=== PATIENT | male | born 1950 | race Caucasian/White ===

== ENCOUNTER 2018-04-03 06:54 | Inpatient (IN) ==
--- NOTE | 2018-03-08 09:48 | PAT Medication Instructions ---
Medication Instructions Date of Service March 08, 2018 Home Medications aspirin [Aspir-81] 81 mg PO HS atorvastatin [Lipitor] 10 mg PO PM ezetimibe [Zetia] 10 mg PO QAM hydrochlorothiazide 25 mg PO QAM losartan 100 mg PO QAM montelukast 10 mg PO PM multivitamin 1 tab PO QAM naproxen sodium 220 mg PO HS NEEDED ranitidine HCl 150 mg PO HS NEEDED tadalafil [Cialis] 5 mg PO QAM terazosin 1 mg PO HS Saline Nasal 1 dose INTRANASAL DAILY fluticasone furoate [Flonase 2 spray INTRANASAL QAM ASK your surgeon for instructions naproxen sodium 220 mg PO HS NEEDED ASK your prescriber and surgeon aspirin [Aspir-81] 81 mg PO HS DO NOT take the morning of surgery multivitamin 1 tab PO QAM hydrochlorothiazide 25 mg PO QAM losartan 100 mg PO QAM Saline Nasal 1 dose INTRANASAL DAILY fluticasone furoate [Flonase 2 spray INTRANASAL QAM Take morning of surgery With a small sip of water, OTHERWISE NOTHING TO EAT OR DRINK AFTER MIDNIGHT: tadalafil [Cialis] 5 mg PO QAM ezetimibe [Zetia] 10 mg PO QAM Take evening before surgery terazosin 1 mg PO HS ranitidine HCl 150 mg PO HS NEEDED montelukast 10 mg PO PM atorvastatin [Lipitor] 10 mg PO PM Other Notes If you have any questions please call us at [phone] or [phone] or [phone] or [phone]
--- NOTE | 2018-03-08 12:08 | Anesthesiology Consultation ---
Date of Service March 08, 2018 Assessment & Plan (1) Encounter for pre-operative examination: Chart Review Chart Review: Acceptable Risk for Surgery and Patient seen in Pre Admission Testing Consults Requested none Patient was seen by Dr. Guevara (carpenter railcar) on 01/09/18. At that visit, it was noted "based on his recent stress test he will be cleared. He will be considered low cardiac risk." Teaching & Discussion Pre-Anesthesia Teaching/Discussion Notes: Instructed NPO after midnight before surgery, except medications with 15 cc of water. Medication instructions provided according to the PAT guidelines. History Surgery Operation Date: 04/03/18 07:00 Proposed Procedures p Right Total Knee Arthroplasty - Mik Alba MD Height/Weight Height: 6 ft 1 in Weight: 141.1 kg Allergies Allergy/AdvReac Type Severity Reaction Status Date / Time peanut Allergy Severe swelling Verified 02/27/18 08:23 Medications Home Medications Medication Instructions Recorded Confirmed Last Taken aspirin [Aspir-81] 81 mg PO HS 02/27/18 02/27/18 Unknown atorvastatin [Lipitor] 10 mg PO PM 02/27/18 02/27/18 Unknown ezetimibe [Zetia] 10 mg PO QAM 02/27/18 02/27/18 Unknown hydrochlorothiazide 25 mg PO QAM 02/27/18 02/27/18 Unknown losartan 100 mg PO QAM 02/27/18 02/27/18 Unknown montelukast 10 mg PO PM 02/27/18 02/27/18 Unknown multivitamin [Multiple Vitamins] 1 tab PO QAM 02/27/18 02/27/18 Unknown naproxen sodium 220 mg PO HS PRN 02/27/18 02/27/18 Unknown ranitidine HCl 150 mg PO HS PRN 02/27/18 02/27/18 Unknown tadalafil [Cialis] 5 mg PO QAM 02/27/18 02/27/18 Unknown terazosin 1 mg PO HS 02/27/18 02/27/18 Unknown Saline Nasal 1 dose INTRANASAL DAILY 03/08/18 03/08/18 Unknown fluticasone furoate [Flonase 2 spray INTRANASAL QAM 03/08/18 03/08/18 Unknown Sensimist] Past Medical History Medical History BPH (benign prostatic hyperplasia) Cardiac murmur DISCOVERED 5 YEARS AGO, WAS SENT TO CARDIO AND HAD CARDIAC CATH, DIAGNOSITIC ONLY Degenerative disc disease PT FOLLOWS WITH UOC AND DENIES ANY CURRENT ISSUES WITH PHYSICAL THERAPY GERD (gastroesophageal reflux disease) NSAID INDUCED Hyperlipidemia Hypertension Osteoarthritis Pre-diabetes DIET CONTROLLED Sleep apnea USES CPAP/BIPAP HS Past Surgical History Surgical History History of adenoidectomy History of cardiac cath DIAGNOSTIC ONLY History of cholecystectomy History of myringotomy BILATERAL, CURRENT History of sinus surgery History of tonsillectomy History of tooth extraction History of total knee replacement LEFT Past Anesthesia History No Hx of Anesthesia Complications and No Family Hx of Anesthesia Complications History of PONV No Motion Sickness Screening History of Motion Sickness: No Social History Smoking Status: Never smoker Do You Dip or Chew Tobacco: No Hx Alcohol Use: Yes alcohol intake frequency: holidays/special occasions only Alcohol Intake Frequency Comment: RARE Hx Substance Use: Yes substance use type: does not use Exercise / Class Metabolic Activity II 4-5 Yardwork/Stairs/Walk up hill (Decreased due to knee pain. Able to climb FOS. Able to mow yard. Does PT 2x week. Denies CP or SOB. ) Review of Systems Patient denies chest pain, shortness of breath, dyspnea on exertion, reflux ( controlled with medication if it occurs - rare), cough, wheezing, palpitations. +joint pain (knee, hip) Physical Exam Vital Signs BP: 118/75 P: 74 R: 16 T: 97.4 SPO2: 96% on RA ENMT Thyromental Distance: > or= 3.5 Finger Breadths (3.5) Mallampati Class: III Neck normal visual inspection and trachea midline; neck extension not limited Respiratory normal respiratory effort Auscultation: lungs clear to auscultation bilaterally Cardiovascular Rate/Rhythm: regular rate and regular rhythm Heart Sounds: no murmur Vessels: no carotid bruit Neurologic moves all extremities Psychiatric Orientation: alert and oriented x 3 Testing Electrocardiogram Date: 01/09/18 Findings: + NSR @ (76) Low voltage in precordial leads. Chest X-Ray Date: 03/08/18 Findings: + NAD FINDINGS: Chronic bibasilar parenchymal fibrotic change. Mild stable cardia megaly. Mid and upper lungs are clear. IMPRESSION: Chronic change. No acute process. Echocardiogram Date: 10/26/16 EF: 60% Left ventricular size is normal with concentric LVH. Normal wall motion. Moderately enlarged left and right atrial size. Moderately enlarged right ventricular size with normal right ventricular function. Thickened mitral valve without mitral annular calcification. No evidence of mitral stenosis. Diastolic dysfunction noted by doppler (Grade I). Sclerotic aortic valve visualized. Normal tricuspid valve visualized. Visualized portion of the pulmonic valve is normal. Colorflow doppler reveals mild mitral, no aortic, mild to moderate tricuspid, and mild pulmonic insufficiencies. Right ventricular systolic pressure is 33 mmHg, consistent with mild hypertension. Stress Test Date: 10/26/16 Type: exercise Baseline EKG WNL and NSR. No chest pain. Normal hemodynamic response to exercise normal. Frequent PVCs. Exercise tolerance good. Achieved 87% of MPHR. Stress EKG negative for ischemia. PLAN: Continue same medications. Cardiac Catheterization Date: 11/08/12 Findings: + RCA (30-40% stenosis) Intervention: + none Normal chamber size. Normal wall motion. LVEF 55%. 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 Preserved LVEF. Normal LVEDP. Recommendations: Maximize medical therapy and risk factor modification. Laboratory Results 03/08/18 12:40 03/08/18 12:40 Blood Type A Positive 03/08/18 12:40 Antibody Screen NEGATIVE 03/08/18 12:40 PT 10.4 Seconds (9.0-12.0) 03/08/18 12:40 INR 1.0 (0.9-1.1) 03/08/18 12:40 APTT 26.3 Seconds (21.0-31.0) 03/08/18 12:40 Hemoglobin A1c 5.9 % (4.5-5.6) H 03/08/18 12:40 Urine Color Yellow 03/08/18 Unknown Urine Appearance Clear (Clear) 03/08/18 Unknown Urine pH 7.0 (4.5-7.5) 03/08/18 Unknown Ur Specific [place] 1.012 (1.000-1.030) 03/08/18 Unknown Urine Protein Negative (Negative) 03/08/18 Unknown Urine Glucose (UA) Negative (Negative) 03/08/18 Unknown Urine Ketones Negative (Negative) 03/08/18 Unknown Urine Nitrite Negative (Negative) 03/08/18 Unknown Ur Leukocyte Esterase Negative (Negative) 03/08/18 Unknown 03/08/18 Unknown Urine Culture - Preliminary Urine,Clean Catch No growth - Less than 1,000 colonies/mL, Final report to follow.
[2018-03-08 13:06] LABS: Basophils # (auto) 0.01 K/uL (0-0.2); Basophils % (auto) 0.2 %; Eosinophils # (auto) 0.13 K/uL (0-0.5); Eosinophils % (auto) 2.8 %; Hematocrit (blood only) 42.5 % (42-52); Hemoglobin 14.4 g/dL (14.0-18.0); Immature Granulocytes # (auto) 0.01 K/uL (0.00-0.02); Immature Granulocytes % (auto) 0.2 %; Lymphocytes # (auto) 1.64 K/uL (1.2-3.4); Lymphocytes % (auto) 35.1 %; Mean Corpuscular Hgb Conc 33.9 g/dL (32-36); Mean Corpuscular Volume 87.6 fL (80-100); Mean Platelet Volume 9.6 fL (7.4-10.4); Monocytes # (auto) 0.46 K/uL (0.11-0.59); Monocytes % (auto) 9.9 %; Neutrophils # (auto) 2.42 K/uL (1.4-6.5); Neutrophils % (auto) 51.8 %; Platelet Count 187 K/uL (130-400); RDW Coefficient of Variation 13.1 % (11.5-14.5); Red Blood Count 4.85 M/uL (4.7-6.1); White Blood Count 4.67 K/uL (4.8-10.8)
[2018-03-08 13:15] LABS: Appearance Urine Clear (Clear); Bilirubin Urine Negative (Negative); Color Urine Yellow; Glucose Urine UA Negative (Negative); Ketones Urine Negative (Negative); Leukocyte Esterase Urine Negative (Negative); Nitrite Urine Negative (Negative); Protein Urine Negative (Negative); Specific Gravity Urine 1.012 (1.000-1.030); Urobilinogen Urine Negative (Negative)
[2018-03-08 13:23] LABS: Partial Thromboplastin Time 26.3 Seconds (21.0-31.0); Prothrombin Time 10.4 Seconds (9.0-12.0)
--- NOTE | 2018-03-08 13:24 | XRay Report ---
XR chest Pre-admission PA/Lat CLINICAL HISTORY: pat preoperative evaluation COMPARISON STUDY: 10/04/2012 FINDINGS: Chronic bibasilar parenchymal fibrotic change. Mild stable cardia megaly. Mid and upper lizeth gs are clear. IMPRESSION: Chronic change. No acute process. The above report was generated using voice recognition software. It may contain grammatical, syntax or spelling errors. Electronically signed by: Jeff Jones M.D. 03/08/2018 1:22 PM
[2018-03-08 13:27] LABS: Albumin Level 4.2 gm/dl (3.4-5.0); BUN Creatinine Ratio 15.2 (10-20); Creatinine Clr Calc Pharmacy 100.9 ml/min; Est GFR (African American) 86.5; Est GFR (Non-African American) 74.6; Potassium 3.9 mmol/L (3.5-5.1)
[2018-03-08 13:42] LABS: Estimated Average Glucose 123 mg/dl
--- NOTE | 2018-03-31 12:15 | History and Physical Report ---
DATE OF ADMISSION: 04/03/2018 CHIEF COMPLAINT: Right knee pain. HISTORY OF PRESENT ILLNESS: The patient is a 68-year-old gentleman with known osteoarthritis about his right knee. He had a previous left total knee arthroplasty approximately 5 years ago. He has had previous corticosteroid injection in the right knee. Due to ongoing pain and disability, he now desires to proceed with right total knee arthroplasty. PAST MEDICAL HISTORY: Hypertension, hypercholesterolemia, sleep apnea with CPAP use, prediabetes, osteoarthritis, obesity. PAST SURGICAL HISTORY: Tonsillectomy, cholecystectomy, oral surgery, left knee replacement as above, nasal surgery, ear surgery. MEDICATIONS: Hydrochlorothiazide 25 mg daily, Singulair 10 mg daily, aspirin 81 mg daily, Lipitor 10 mg daily, terazosin 1 mg at bedtime, losartan 100 mg daily, Zetia 10 mg at bedtime, multivitamin daily, Flonase 2 sprays each nostril daily. ALLERGIES: ADHESIVES CAUSE A RASH, PEANUTS. SOCIAL HISTORY AND REVIEW OF SYSTEMS: Noncontributory. PHYSICAL EXAMINATION: GENERAL: Well-nourished, well-developed male who appears stated age. HEENT: Normocephalic, atraumatic. External movements intact, oropharynx pink and moist. NECK: Supple without adenopathy. LUNGS: Clear to auscultation bilaterally. HEART: Regular rate and rhythm. ABDOMEN: Soft, nontender, nondistended. EXTREMITIES: The upper extremities are within normal limits. The right knee is in neutral alignment. He complains primarily of medial compartment pain. He has range of motion from 0 to 125 degrees. X-RAYS: X-rays were reviewed. He has a neutral slightly varus aligned knee. He has bone on bone arthritis of medial compartment and medial joint line osteophytes. He has mild degenerative changes about the patellofemoral joint with osteophyte formation as well. ASSESSMENT: Right knee degenerative joint disease. PLAN: Risks versus benefits were discussed, consent was obtained. The patient's primary care physician is Dr. Salas from [facility]. His insurance checker is Dr. Guevara from [facility] cardiology in [place]. We will proceed with right total knee arthroplasty as indicated.
[~2018-04-03 06:54] MED LIST: ACETAMINOPHEN 500 MG TAB PO SCH; BUPIVACAINE 0.5 % 5 MG/1 ML PF 10ML VIAL ONE; CEFAZOLIN 3000MG 65 ML IV SCH; CeleBREX 200 MG CAP PO SCH; FAMOTIDINE 20 MG TAB PO SCH; GABAPENTIN 300 MG PO SCH; ROPIVACAINE 0.5% 5 MG/ML 30 ML VIAL ONE; ROPIVACAINE 0.5% HCL/PF 150 MG, BUPIVACAINE 0.5% MPF 30 ML, EPINEPHrine 30MG/30ML (OR U... INFIL SCH; TRANEXAMIC ACID 1,000 MG **IV Intra-op IV SCH; TRANEXAMIC ACID 1,000 MG **IV Pre-op IV SCH; dexAMETHasone 4 MG TAB PO SCH
[2018-04-03] MEDS: LR 500ML BOLUS, THEN 15ML/HR IV SCH ×3 (07:45→19:41)
[2018-04-03] MEDS ORDERED: MIDAZOLAM HCL 1 MG/ML 2ML VIAL ONE ×3 (07:52→09:06)
[2018-04-03] MEDS ORDERED: fentaNYL citrate 100 MCG/2 ML VIAL ONE (07:52)
[2018-04-03] MEDS ORDERED: BACITRACIN INJ 50,000 UNIT VIAL ONE (07:53)
[2018-04-03] MEDS ORDERED: ORTHO JOINT ANESTHETIC ONE (07:53)
[2018-04-03] MEDS ORDERED: POVIDONE-IODINE OP SOLN 30 ML BTL ONE (07:53)
--- NOTE | 2018-04-03 08:02 | History & Physical Bridge Note ---
Date of Service April 03, 2018 History & Physical Bridge Note I have examined the patient, reviewed the History & Physical and in the interval since the performance of the History & Physical I have noted the following changes of clinical significance: no changes noted
[2018-04-03] MEDS ORDERED: KETOROLAC 30 MG/ML VIAL IV PRN (08:34)
[2018-04-03] MEDS ORDERED: PHENYLEPHRINE 100MCG/ML 5ML SYR IV PRN (08:34)
[2018-04-03] MEDS ORDERED: ATROPINE SULFATE 0.1 MG/ML 10ML SYR IV PRN (08:34)
[2018-04-03] MEDS ORDERED: ePHEDrine sulfate 50 MG/ML AMP IV PRN (08:34)
[2018-04-03] MEDS ORDERED: ONDANSETRON INJ 2 MG/ML 2 ML VIAL IV PRN ×2 (08:34→11:59)
[2018-04-03] MEDS ORDERED: HYDROmorphone INJ 1 MG/ML SYRINGE IV PRN (08:34)
[2018-04-03] MEDS ORDERED: LIDOCAINE HCL 2% 2 ML VIAL/AMP(20MG/ML) INFIL ONE (09:04)
[2018-04-03] MEDS ORDERED: PROPOFOL IV EMULSION 10 MG/ML 20 ML VIAL IV ONE ×2 (09:04→09:52)
[2018-04-03] MEDS ORDERED: PHENYLEPHRINE 100MCG/ML 5ML SYR ONE (09:13)
--- NOTE | 2018-04-03 10:08 | Operative Report ---
Post Operative Report Pre & Post Diagnosis Operation Date: 04/03/18 09:05 Pre-Op Diagnosis: Right Knee Osteoarthritis Post-Op Diagnosis: Right Knee Osteoarthritis Procedure Operation Date: 04/03/18 09:05 Actual Procedures p Right Total Knee Arthroplasty(Right) - Mik Alba MD Surgeon Mik Alba MD Fitness Studies Teacher Holli Estimated Blood Loss 20 Findings Consistent with Post-Op Diagnosis Specimens Bone fragments Anesthesia Type Spinal Complications none Disposition Accompanied Patient To Recovery: No Disposition: Recovery Room Description of Procedure Knee pain I attest to the content of the Intraoperative Record and any orders documented therein. Any exceptions are noted below. Patient's right leg was prepped and draped in usual sterile manner. The limb was exsanguinated with an Esmarch bandage tourniquet inflated to 300 was mercury. Longitudinal incision was made a medium parapatellar incision was made patella was everted and the knee was flexed. Fat pad was removed and the tibia was resected using extra medullary guide. Next attention was turned to the femur where a size 5 femoral component was chosen size to be used in all femoral cuts were made and bone file was removed. The notch was prepared and a bone plug was made for the canal. Trial femur was impacted in the position was fit very well and the drill was utilized to create holes for the pegs. Tibia is subluxed anteriorly and incised for tibia was chosen
[2018-04-03] MEDS ORDERED: MoRPHine SULFATE 4 MG/ML 1 ML CARP\\VIAL IV PRN (11:59)
[2018-04-03] MEDS ORDERED: ALUMINUM/MAGNESIUM SUSP 30 ML UDC PO PRN (11:59)
[2018-04-03] MEDS ORDERED: MAGNESIUM HYDROXIDE SUSP 30 ML UDC PO PRN (11:59)
--- NOTE | 2018-04-03 12:07 | XRay Report ---
RIGHT KNEE 2 VIEWS History: Right total knee arthroplasty. Degenerative arthritis. Postop. FINDINGS: The patient is status post a right total knee arthroplasty. The hardware is intact. No frac ture or dislocation. Surgical drains are in place. IMPRESSION: Right total knee arthroplasty. No evidence for hardware complication. Electronically signed by: Yobani Logan M.D. 04/03/2018 12:06 PM
[2018-04-03] MEDS ORDERED: SODIUM CHLORIDE 0.9% 1000ML 1,000 ML IV SCH (12:10)
--- NOTE | 2018-04-03 12:12 | Anesthesiology Progress Note ---
Date of Service April 03, 2018 Anesthesia Post Procedure Vital Signs Vital Signs: Temp Pulse Pulse Pulse Resp BP Pulse Ox 04/03/18 12:00 36.4 C L 81 18 139/78 96 04/03/18 11:30 80 21 131/61 95 04/03/18 11:20 36.2 C L 75 23 125/75 97 04/03/18 11:10 77 20 134/60 97 04/03/18 11:00 80 18 124/66 95 04/03/18 10:50 78 21 111/75 97 04/03/18 10:42 36.0 C L 77 22 114/53 L 100 04/03/18 07:34 36.7 C 78 18 143/73 H 96 Pain Intensity Right Knee: Pain Intensity: 0
[2018-04-03] MEDS: ACETAMINOPHEN 500 MG TAB PO SCH ×2 (14:47→22:21)
[2018-04-03] MEDS: OXYCODONE HCL IR 5 MG TAB (IMMEDIATE RELEASE) PO PRN ×2 (14:51→20:35)
[2018-04-03] MEDS: CEFAZOLIN 2000MG 2,000 MG/15 ML SYR IV SCH (17:14)
[2018-04-03] MEDS: DOCUSATE SODIUM 100 MG CAP PO SCH (20:35)
[2018-04-03] MEDS: ATORVASTATIN 10 MG TAB PO SCH (20:35)
[2018-04-03] MEDS: SENNA 8.6 MG TAB PO SCH (20:35)
[2018-04-03] MEDS: ASPIRIN 81 MG ECTAB PO SCH (20:35)
[2018-04-03] MEDS: MONTELUKAST SODIUM 10 MG TABLET PO SCH (20:35)
[2018-04-03] MEDS: TERAZOSIN HCL 1 MG CAP PO SCH (20:36)
[2018-04-04] MEDS: OXYCODONE HCL IR 5 MG TAB (IMMEDIATE RELEASE) PO PRN ×5 (00:39→18:59)
[2018-04-04] MEDS: CEFAZOLIN 2000MG 2,000 MG/15 ML SYR IV SCH (00:40)
[2018-04-04 06:05] LABS: Hematocrit (blood only) 30.2 % (42-52); Hemoglobin 10.5 g/dL (14.0-18.0); Mean Corpuscular Hgb Conc 34.8 g/dL (32-36); Mean Corpuscular Volume 86.5 fL (80-100); Mean Platelet Volume 9.4 fL (7.4-10.4); Platelet Count 171 K/uL (130-400); RDW Standard Deviation 41.1 fL (36.4-46.3); Red Blood Count 3.49 M/uL (4.7-6.1); White Blood Count 10.43 K/uL (4.8-10.8)
[2018-04-04 06:37] LABS: BUN Creatinine Ratio 19.5 (10-20); Calcium 8.1 mg/dl (8.5-10.1); Creatinine Clr Calc Pharmacy 94.4 ml/min; Est GFR (African American) 78.1; Est GFR (Non-African American) 67.4; Potassium 3.9 mmol/L (3.5-5.1)
--- NOTE | 2018-04-04 07:31 | Orthopedic Progress Note ---
Date of Service April 04, 2018 Assessment & Plan (1) Status post right knee replacement: 68 yo male stable POD #1 s/p right TKA 1. Med management 2. DVT prophylaxis- ASA, SCDs 3. PT/OT 4. D/C planning- home w/ OPPT Subjective Pt resting comfortably in bed, pain controlled, denies complaints Physical Exam 2 Vital Signs (Past 24 Hours): Last Vital Signs Temp 36.4 C L 04/04/18 07:07 Pulse 89 04/04/18 07:07 Resp 16 04/04/18 07:07 BP 143/80 H 04/04/18 07:07 Pulse Ox 95 04/04/18 07:07 Physical Exam: Toes mobile, N/V/I, dressing and drain in place Results & Data Laboratory Results 04/04/18 04/04/18 Range/Units 05:41 05:41 WBC 10.43 (4.8-10.8) K/uL RBC 3.49 L (4.7-6.1) M/uL Hgb 10.5 L (14.0-18.0) g/dL Hct 30.2 L (42-52) % MCV 86.5 (80-100) fL MCH 30.1 (25-34) pg MCHC 34.8 (32-36) g/dL RDW Std Deviation 41.1 (36.4-46.3) fL RDW Coeff of Renetta 13.0 (11.5-14.5) % Plt Count 171 (130-400) K/uL MPV 9.4 (7.4-10.4) fL Sodium 134 L (136-145) mmol/L Potassium 3.9 (3.5-5.1) mmol/L Chloride 101 (98-107) mmol/L Carbon Dioxide 23 (21-32) mmol/L Anion Gap 10.0 (3-11) BUN 22 H (7-18) mg/dl Creatinine 1.11 (0.6-1.4) mg/dl Est Cr Clr Drug Dosing 94.4 ml/min Est GFR ( Amer) 78.1 Est GFR (Non-Af Amer) 67.4 BUN/Creatinine Ratio 19.5 (10-20) Glucose 149 H (70-99) mg/dl Calcium 8.1 L (8.5-10.1) mg/dl
[2018-04-04] MEDS: ACETAMINOPHEN 500 MG TAB PO SCH ×3 (07:38→21:13)
[2018-04-04] MEDS: MULTIVITAMIN TAB PO SCH (08:36)
[2018-04-04] MEDS: DOCUSATE SODIUM 100 MG CAP PO SCH ×2 (08:36→21:07)
[2018-04-04] MEDS: ASPIRIN 81 MG ECTAB PO SCH ×2 (08:36→21:09)
[2018-04-04] MEDS: LOSARTAN POTASSIUM 50 MG TAB PO SCH (08:36)
[2018-04-04] MEDS: EZETIMIBE 10 MG TABLET PO SCH (08:37)
[2018-04-04] MEDS: TERAZOSIN HCL 1 MG CAP PO SCH (21:11)
[2018-04-04] MEDS: SENNA 8.6 MG TAB PO SCH (21:12)
[2018-04-04] MEDS: MONTELUKAST SODIUM 10 MG TABLET PO SCH (21:12)
[2018-04-04] MEDS: ATORVASTATIN 10 MG TAB PO SCH (21:13)
[2018-04-05] MEDS: OXYCODONE HCL IR 5 MG TAB (IMMEDIATE RELEASE) PO PRN ×3 (05:50→11:23)
[2018-04-05] MEDS: ACETAMINOPHEN 500 MG TAB PO SCH (05:51)
[2018-04-05] MEDS: DOCUSATE SODIUM 100 MG CAP PO SCH (07:29)
--- NOTE | 2018-04-05 07:29 | Orthopedic Progress Note ---
Date of Service April 05, 2018 Assessment & Plan (1) Status post right knee replacement: 68 yo male stable POD #2 s/p right TKA 1. Med management 2. DVT prophylaxis- ASA, SCDs 3. PT/OT 4. D/C planning- home w/ OPPT Subjective Pt resting comfortably in bed, pain controlled, denies complaints Physical Exam 2 Vital Signs (Past 24 Hours): Last Vital Signs Temp 36.9 C 04/05/18 06:33 Pulse 82 04/05/18 06:33 Resp 18 04/05/18 06:33 BP 163/85 H 04/05/18 06:33 Pulse Ox 98 04/05/18 06:33 Physical Exam: Dressing/drain d/c'd, Incision C/D/I, toes mobile, NVI
[2018-04-05] MEDS: ASPIRIN 81 MG ECTAB PO SCH (07:30)
[2018-04-05] MEDS: MULTIVITAMIN TAB PO SCH (07:30)
[2018-04-05] MEDS: EZETIMIBE 10 MG TABLET PO SCH (07:31)
[2018-04-05] MEDS: LOSARTAN POTASSIUM 50 MG TAB PO SCH (07:31)
--- NOTE | 2018-04-10 18:00 | Discharge Summary ---
DISCHARGE DIAGNOSIS: Degenerative joint disease, right knee. SECONDARY DIAGNOSES: Hypertension, hypercholesterolemia, sleep apnea with CPAP use, prediabetic, obesity. CONSULTS: None. COMPLICATIONS: None. PROCEDURES: Right total knee arthroplasty performed by Dr. Alba on 04/03/2018. BRIEF HISTORY: As dictated in history and physical. HOSPITAL SUMMARY: The patient was admitted on the above date and had the above-noted surgery performed, which he tolerated well. On the first postoperative day, he was resting comfortably in bed. Pain was controlled and he had no complaints. Vital signs were stable. He was afebrile. Toes were mobile. Neurovascular intact. Dressings and drain were in place. Hemoglobin was 10.5 and he was started on physical therapy protocol and continued on DVT prophylaxis and pain management. By his second postoperative day, he continued to remain stable. He had no complaints. Pain is controlled. Vital signs were stable. He is afebrile. Dressings and drain were discontinued. Incision was clean, dry and intact. Toes were mobile. Neurovascular intact. He was progressing with his physical therapy and was felt he could be discharged to home with outpatient PT. For further review, please see chart. LABORATORY AND X-RAY DATA: As per chart. DISCHARGE INSTRUCTIONS: The patient was discharged home in satisfactory condition on 04/05/2018. DIET: Regular. ACTIVITY: Weightbearing as tolerated on the right lower extremity. Follow TK instruction sheets and special care instructions as noted. Follow up Dr. Alba in 2 weeks. The patient is to call for appointment if one has not been made for you. DISCHARGE MEDICATIONS: Acetaminophen 1000 mg p.o. q. 8 hours, aspirin 81 mg p.o. b.i.d., cefadroxil 500 mg p.o. b.i.d., oxycodone 5-10 mg p.o. q. 6 hours. Resume home meds as listed and stop taking previous aspirin dosage and naproxen sodium.
--- NOTE | 2018-04-12 14:44 | Operative Report ---
DATE OF OPERATION: 04/03/2018 ADDENDUM Mr. De La Garza was the psychology assistant on this case. He was essential through all portions of this case including positioning, prepping, draping, surgical assistance, wound closure and dressing application. I attest to the content of the Intraoperative Record and any orders documented therein. Any exception s are noted below.
== END 2018-04-05 11:55 | disposition home or self-care (01) | DRG 470 ==
LOC: ASU 06:54 → 3E 11:09